=== PATIENT | female | born 1955 | race Caucasian/White ===

== ENCOUNTER 2016-10-24 12:43 | Emergency (ER) | payer OTHER ==
[2016-10-24 16:25] LABS: HEMOGLOBIN 11.7 gm/dl (12.3-15.3); RED BLOOD COUNT 4.53 M/UL (4.00-5.10); WHITE BLOOD COUNT 11.8 K/UL (4.5-11.0)
[2016-10-24 16:46] LABS: BUN/CREATININE RATIO 19 (0-10)
== END 2016-10-24 20:10 | disposition short-term general hospital (02) ==
LOC: ER1 12:43
PROVIDERS: Specialist/Technologist Athletic Trainer
DX: G45.9 Transient cerebral ischemic attack, unspecified (principal); E03.9 Hypothyroidism, unspecified; F20.9 Schizophrenia, unspecified; M81.0 Age-related osteoporosis without current pathological fracture; Z79.899 Other long term (current) drug therapy
CPT/HCPCS: 36415; 70450; 80053; 82550; 82553; 83605; 83874; 84484; 85025; 93005; 99285

== ENCOUNTER 2016-11-04 09:41 | Observation (INO) | payer OTHER ==
[~2016-11-04] VITALS: Ht 157.5 cm; Wt 63.5 kg
[2016-11-04 10:43] LABS: HEMOGLOBIN 10.4 gm/dl (12.3-15.3); RED BLOOD COUNT 3.97 M/UL (4.00-5.10); WHITE BLOOD COUNT 9.2 K/UL (4.5-11.0)
[2016-11-04 10:57] LABS: BUN/CREATININE RATIO 29 (0-10)
[2016-11-04] MEDS ORDERED: KLONOPIN TAB 00.5 MG PO (17:36)
[2016-11-04] MEDS ORDERED: CALCIUM + VITA1 EACH PO (17:40)
[2016-11-04] MEDS ORDERED: PRILOSEC OTC20 MG PO (17:41)
[2016-11-04] MEDS ORDERED: MIRALAX17 GM PO (17:41)
[2016-11-04] MEDS ORDERED: SYNTHROID 50 M50 MCG PO (17:42)
[2016-11-04] MEDS ORDERED: VITAMIN D 11000 UNIT PO (17:42)
[2016-11-04] MEDS ORDERED: LAMICTAL100 MG PO (17:42)
[2016-11-04] MEDS ORDERED: RISPERDAL3 MG PO (17:43)
[2016-11-04] MEDS ORDERED: ASPIRIN EC81 MG PO (17:44)
[2016-11-04] MEDS ORDERED: PROLIA INJ60 MG/1 ML SQ (17:44)
[2016-11-04] MEDS ORDERED: ZOCOR20 MG PO (17:45)
[2016-11-04] MEDS ORDERED: LISINOPRIL5 MG PO (17:45)
[2016-11-04] MEDS ORDERED: CLARITIN10 MG PO (17:46)
[2016-11-04] MEDS ORDERED: MOBIC7.5 MG PO (17:47)
[2016-11-04] MEDS ORDERED: COLACE 100MG C100 MG PO (17:47)
[2016-11-05 04:44] LABS: HEMOGLOBIN 10.5 gm/dl (12.3-15.3); RED BLOOD COUNT 4.08 M/UL (4.00-5.10); WHITE BLOOD COUNT 7.8 K/UL (4.5-11.0)
[2016-11-05 05:02] LABS: BUN/CREATININE RATIO 23 (0-10)
== END 2016-11-05 18:11 | disposition home or self-care (01) ==
LOC: ER1 09:41 → MED SURG 4 19:06 → ZEROF 19:06 → MED SURG 4 22:10
PROVIDERS: Emergency Medicine; ADMIT Internal Medicine
DX: R47.81 Slurred speech (principal); I65.22 Occlusion and stenosis of left carotid artery; G40.909 Epilepsy, unspecified, not intractable, without status epilepticus; E78.5 Hyperlipidemia, unspecified; E03.9 Hypothyroidism, unspecified; K21.9 Gastro-esophageal reflux disease without esophagitis; F79 Unspecified intellectual disabilities; Z86.59 Personal history of other mental and behavioral disorders; Z79.1 Long term (current) use of non-steroidal anti-inflammatories (NSAID); Z79.82 Long term (current) use of aspirin; Z79.899 Other long term (current) drug therapy
CPT/HCPCS: 36415; 70450; 70498; 71010; 71260; 80048; 80053; 82550; 82553; 83735; 83874; 84439; 84443; 84484; 85025; 87040; 93005; 99285; G0378; J7030; J7050; Q9963

== ENCOUNTER 2017-04-27 13:29 | Emergency (ER) | payer OTHER ==
[~2017-04-27 13:29] MED LIST: ASPIRIN EC81 MG PO; CALCIUM + VITA1 EACH PO; CLARITIN10 MG PO; COLACE 100MG C100 MG PO; KLONOPIN TAB 00.5 MG PO; LAMICTAL100 MG PO; LISINOPRIL5 MG PO; MIRALAX17 GM PO; MOBIC7.5 MG PO; PRILOSEC OTC20 MG PO; PROLIA INJ60 MG/1 ML SQ; RISPERDAL3 MG PO; SYNTHROID 50 M50 MCG PO; VITAMIN D 11000 UNIT PO; ZOCOR20 MG PO
== END 2017-04-27 16:50 | disposition home or self-care (01) ==
LOC: ER1 13:29
DX: J32.9 Chronic sinusitis, unspecified (principal); R53.1 Weakness; F79 Unspecified intellectual disabilities
CPT/HCPCS: 70450; 99291

== ENCOUNTER → 2020-09-13 | Outpatient (CLI) | payer OTHER ==
[~2020-09-13] MED LIST changes: +ACID REDUCER20 MG PO; +AMITIZA 24 MCG24 MCG PO; +BENZOTROPINE PO; +CARAFATE 1 GM TA1 GM PO; +CARAFATE1 GM PO; +COGENTIN 2MG TAB2 MG PO; +CRESTOR 10 MG T10 MG PO; +CRESTOR5 MG PO; +FAMOTIDINE20 MG PO; +GINGER ROOT CAPSULE PO; +GINGER ROOT550 MG PO; +KLONOPIN0.5 MG PO; +LAMOTRIGINE100 MG PO; +LEVOTHYROXINE50 MC1 PO; +LINZESS72 MCG PO; +MEGESTROL 40 MG/ML PO; +MELATONIN10 M2 PO; +METOPROLOL TART25 MG PO; +PLAVIX75 MG PO; +PROTONIX 40 MG40 M1 PO; +RISPERIDONE2 MG PO; +TOPROL XL25 MG PO
== END ==
LOC: US 08:30
DX: R10.11 Right upper quadrant pain (principal); R93.3 Abnormal findings on diagnostic imaging of other parts of digestive tract; R93.2 Abnormal findings on diagnostic imaging of liver and biliary tract
CPT/HCPCS: 76705; 78264; A9541

== ENCOUNTER 2020-09-20 18:33 | Inpatient (IN) | payer OTHER ==
[~2020-09-20] VITALS: Ht 168 cm; Wt 50.3 kg
[~2020-09-20 18:33] MED LIST changes: -ACID REDUCER20 MG PO; -BENZOTROPINE PO; -CARAFATE 1 GM TA1 GM PO; -CARAFATE1 GM PO; -CRESTOR 10 MG T10 MG PO; -CRESTOR5 MG PO; -FAMOTIDINE20 MG PO; -GINGER ROOT CAPSULE PO; -GINGER ROOT550 MG PO; -KLONOPIN0.5 MG PO; -LAMOTRIGINE100 MG PO; -LEVOTHYROXINE50 MC1 PO; -LINZESS72 MCG PO; -MEGESTROL 40 MG/ML PO; -MELATONIN10 M2 PO; -METOPROLOL TART25 MG PO; -PROTONIX 40 MG40 M1 PO; -RISPERIDONE2 MG PO; -TOPROL XL25 MG PO
[2020-09-20 21:00] LABS: RED BLOOD COUNT 1.91 M/UL (4.00-5.10)
[2020-09-20 21:08] LABS: HEMOGLOBIN 3.6 gm/dl (12.3-15.3); WHITE BLOOD COUNT 33.3 K/UL (4.5-11.0)
[2020-09-21 02:02] LABS: WHITE BLOOD COUNT 27.8 K/UL (4.5-11.0)
[2020-09-21 02:13] LABS: RED BLOOD COUNT 2.3 M/UL (4.00-5.10)
[2020-09-21 02:14] LABS: HEMOGLOBIN 5.4 gm/dl (12.3-15.3)
[2020-09-21] MEDS ORDERED: METOPROLOL TART25 MG PO (03:01)
[2020-09-21] MEDS ORDERED: CRESTOR 10 MG T10 MG PO (03:02)
[2020-09-21] MEDS ORDERED: KLONOPIN TAB 00.5 MG PO (03:02)
[2020-09-21] MEDS ORDERED: MELATONIN10 M2 PO (03:03)
[2020-09-21] MEDS ORDERED: ACID REDUCER20 MG PO (03:03)
[2020-09-21] MEDS ORDERED: GINGER ROOT550 MG PO (03:05)
[2020-09-21 07:25] LABS: HEMOGLOBIN 7.6 gm/dl (12.3-15.3)
[2020-09-21 14:04] LABS: HEMOGLOBIN 7.6 gm/dl (12.3-15.3)
[2020-09-21 22:00] LABS: HEMOGLOBIN 7.5 gm/dl (12.3-15.3)
[2020-09-22 03:05] LABS: HEMOGLOBIN 7.1 gm/dl (12.3-15.3)
[2020-09-22 03:15] LABS: RED BLOOD COUNT 2.8 M/UL (4.00-5.10)
[2020-09-22 03:44] LABS: BUN/CREATININE RATIO 26 (0-10)
[2020-09-22 11:08] LABS: HEMOGLOBIN 7.8 gm/dl (12.3-15.3); RED BLOOD COUNT 3.13 M/UL (4.00-5.10); WHITE BLOOD COUNT 19.2 K/UL (4.5-11.0)
[2020-09-23 03:11] LABS: RED BLOOD COUNT 2.83 M/UL (4.00-5.10); WHITE BLOOD COUNT 16.5 K/UL (4.5-11.0)
[2020-09-23 03:44] LABS: BUN/CREATININE RATIO 19 (0-10)
[2020-09-23 17:27] LABS: HEMOGLOBIN 9.9 gm/dl (12.3-15.3)
[2020-09-25 02:37] LABS: HEMOGLOBIN 9.8 gm/dl (12.3-15.3); RED BLOOD COUNT 3.86 M/UL (4.00-5.10); WHITE BLOOD COUNT 12.9 K/UL (4.5-11.0)
[2020-09-25 03:50] LABS: BUN/CREATININE RATIO 11 (0-10)
[2020-09-26 02:29] LABS: HEMOGLOBIN 10.9 gm/dl (12.3-15.3); WHITE BLOOD COUNT 13.2 K/UL (4.5-11.0)
[2020-09-26 02:32] LABS: RED BLOOD COUNT 4.26 M/UL (4.00-5.10)
[2020-09-26 02:49] LABS: BUN/CREATININE RATIO 10 (0-10)
[2020-09-26] MEDS ORDERED: CARAFATE 1 GM TA1 GM PO (10:54)
[2020-09-26] MEDS ORDERED: PROTONIX 40 MG40 M1 PO (10:54)
[2020-11-22] MEDS ORDERED: RISPERIDONE2 MG PO (09:50)
[2020-11-22] MEDS ORDERED: KLONOPIN0.5 MG PO (09:51)
[2020-11-22] MEDS ORDERED: MELATONIN10 M2 PO (09:51)
[2020-11-22] MEDS ORDERED: BENZOTROPINE PO (09:51)
[2020-11-22] MEDS ORDERED: LEVOTHYROXINE50 MC1 PO (09:52)
[2020-11-22] MEDS ORDERED: MEGESTROL 40 MG/ML PO (09:52)
[2020-11-22] MEDS ORDERED: LINZESS72 MCG PO (09:52)
[2020-11-22] MEDS ORDERED: CRESTOR5 MG PO (09:52)
[2020-11-22] MEDS ORDERED: LAMOTRIGINE100 MG PO (09:53)
[2020-11-22] MEDS ORDERED: TOPROL XL25 MG PO (09:53)
[2020-11-22] MEDS ORDERED: GINGER ROOT CAPSULE PO (09:54)
[2020-11-22] MEDS ORDERED: FAMOTIDINE20 MG PO (09:54)
[2020-11-22] MEDS ORDERED: CARAFATE1 GM PO (09:54)
== END 2020-09-26 16:50 | DRG 871 ==
LOC: ER1 18:33 → CDU 09-21 01:38 → PROG CARE 09-21 01:38 → CCU 09-21 01:38 → PROG CARE 09-21 19:00
PROVIDERS: Emergency Medicine; Hospitalist; Internal Medicine Infectious Disease; ADMIT Family Medicine
PROC: 30233N1 Transfusion of Nonautologous Red Blood Cells into Peripheral Vein, Percutaneous Approach (ICD-10-PCS; principal; 2020-09-20)
PROC: 30233N1 Transfusion of Nonautologous Red Blood Cells into Peripheral Vein, Percutaneous Approach (ICD-10-PCS; 2020-09-23)
PROC: 0DJ08ZZ Inspection of Upper Intestinal Tract, Via Natural or Artificial Opening Endoscopic (ICD-10-PCS; 2020-09-25)
DX: A41.9 Sepsis, unspecified organism (principal); J18.9 Pneumonia, unspecified organism; K22.11 Ulcer of esophagus with bleeding; G93.41 Metabolic encephalopathy; D62 Acute posthemorrhagic anemia; E87.2 Acidosis; K22.10 Ulcer of esophagus without bleeding; F72 Severe intellectual disabilities; N39.0 Urinary tract infection, site not specified; N17.9 Acute kidney failure, unspecified; E03.9 Hypothyroidism, unspecified; K44.9 Diaphragmatic hernia without obstruction or gangrene; E87.6 Hypokalemia; K21.00 Gastro-esophageal reflux disease with esophagitis, without bleeding; K22.2 Esophageal obstruction; K22.5 Diverticulum of esophagus, acquired; F20.9 Schizophrenia, unspecified; G40.909 Epilepsy, unspecified, not intractable, without status epilepticus; E78.5 Hyperlipidemia, unspecified; Z20.822 Contact with and (suspected) exposure to COVID-19; Z86.73 Personal history of transient ischemic attack (TIA), and cerebral infarction without residual deficits
CPT/HCPCS: 36415; 36430; 36600; 70450; 71045; 71250; 80048; 80053; 80202; 81001; 82272; 82550; 82553; 82803; 83540; 83550; 83605; 83690; 83735; 83874; 83880; 84484; 85014; 85018; 85025; 85027; 85045; 85610; 85730; 86850; 86870; 86900; 86901; 86920; 86922; 87040; 87077; 87086; 87186; 93005; 94760; 96365; 96366; 96367; 96375; 96376; 99285; C9113; J1335; J2060; J2250; J2405; J2543; J2550; J2704; J3370; J3486; J7030; J7040; J7050; J7070; P9016; U0002

== ENCOUNTER → 2020-11-22 | Day surgery (SDC) | payer OTHER ==
[~2020-11-22] MED LIST changes: +ACID REDUCER20 MG PO; +BENZOTROPINE PO; +CARAFATE 1 GM TA1 GM PO; +CARAFATE1 GM PO; +CRESTOR 10 MG T10 MG PO; +CRESTOR5 MG PO; +FAMOTIDINE20 MG PO; +GINGER ROOT CAPSULE PO; +GINGER ROOT550 MG PO; +KLONOPIN0.5 MG PO; +LAMOTRIGINE100 MG PO; +LEVOTHYROXINE50 MC1 PO; +LINZESS72 MCG PO; +MEGESTROL 40 MG/ML PO; +MELATONIN10 M2 PO; +METOPROLOL TART25 MG PO; +PROTONIX 40 MG40 M1 PO; +RISPERIDONE2 MG PO; +TOPROL XL25 MG PO
== END | disposition home or self-care (01) ==
LOC: OR 08:31
DX: K21.00 Gastro-esophageal reflux disease with esophagitis, without bleeding (principal); K44.9 Diaphragmatic hernia without obstruction or gangrene; K22.5 Diverticulum of esophagus, acquired; E78.00 Pure hypercholesterolemia, unspecified; I10 Essential (primary) hypertension; D50.0 Iron deficiency anemia secondary to blood loss (chronic); F71 Moderate intellectual disabilities; E78.5 Hyperlipidemia, unspecified; E03.9 Hypothyroidism, unspecified; Z79.890 Hormone replacement therapy; Z87.891 Personal history of nicotine dependence
CPT/HCPCS: J2704; J7040

== ENCOUNTER 2021-09-10 13:21 | Emergency (ER) | payer OTHER ==
[2021-09-10 14:11] LABS: HEMOGLOBIN 12.6 gm/dl (12.3-15.3); RED BLOOD COUNT 4.13 M/UL (4.00-5.10); WHITE BLOOD COUNT 12.6 K/UL (4.5-11.0)
[2021-09-10 14:36] LABS: BUN/CREATININE RATIO 20 (0-10)
== END 2021-09-10 16:00 | disposition home or self-care (01) ==
LOC: ER1 13:21
PROVIDERS: Nurse Practitioner
DX: S01.81XA Laceration without foreign body of other part of head, initial encounter (principal); I10 Essential (primary) hypertension; F09 Unspecified mental disorder due to known physiological condition; R26.81 Unsteadiness on feet; Z91.81 History of falling; W01.10XA Fall on same level from slipping, tripping and stumbling with subsequent striking against unspecified object, initial encounter
CPT/HCPCS: 70450; 71045; 80048; 82550; 82553; 83874; 84484; 85025; 99284